=== PATIENT | female | born 1970 | race Two or more races ===

== ENCOUNTER 2017-10-20 21:42 | Emergency (ER) | payer MEDICAID ==
[~2017-10-20] VITALS: Ht 162.6 cm; Wt 127.0 kg
[2017-10-20 21:47] VITALS: BP 145/100
[2017-10-20] MEDS ORDERED: ALBUTEROL SULF 2.5 MG/0.5ML(0.5%) NEB SOLN NEB ONE (22:00)
[2017-10-20] MEDS ORDERED: IPRATROPIUM BROM 0.5 MG/2.5ML INH SOL NEB ONE (22:00)
== END 2017-10-21 00:48 | disposition home or self-care (01) ==
LOC: ER 21:42
DX: R06.02 Shortness of breath (principal); R05 Cough; E07.9 Disorder of thyroid, unspecified; J45.909 Unspecified asthma, uncomplicated; E66.01 Morbid (severe) obesity due to excess calories; Z68.42 Body mass index [BMI] 45.0-49.9, adult
CPT/HCPCS: 71046; 94640